=== PATIENT | male | born 1940 | race Caucasian/White ===

== ENCOUNTER 2019-05-06 11:59 | Day surgery (SDC) | payer MEDICARE ==
[~2019-05-06] VITALS: Ht 182.9 cm; Wt 86.9 kg
[~2019-05-06 11:59] MED LIST: ACET-2065 PO; TRAM50TA2 PO
[2019-05-06] MEDS ORDERED: LACTATED RINGERS 1,000 ML IV SCH (12:55)
[2019-05-06 12:58] VITALS: BP 167/67
[2019-05-06 13:07] LABS: BASOPHILS # (AUTO) 0.07 x10^3/uL (0-0.1); BASOPHILS % (AUTO) 1 % (0-1); EOSINOPHILS # (AUTO) 0.26 x10^3/uL (0-0.4); EOSINOPHILS % (AUTO) 3 % (1-7); LYMPHOCYTES # (AUTO) 1.91 x10^3/uL (1-3.4); LYMPHOCYTES % (AUTO) 21 % (22-44); MD NO; MEAN CORPUSCULAR HEMOGLOBIN 29.9 pg (27.5-34.5); MEAN CORPUSCULAR HGB CONC 33.4 g/dL (33.2-36.2); MEAN CORPUSCULAR VOLUME 89.8 fL (81-97); MEAN PLATELET VOLUME 6.6 fL (7.4-10.4); MONOCYTES # (AUTO) 0.68 x10^3/uL (0.2-0.8); MONOCYTES % (AUTO) 8 % (2-9); NEUTROPHILS # (AUTO) 6.11 x10^3/uL (1.8-6.8); NEUTROPHILS % (AUTO) 68 % (42-75); PLATELET COUNT 255 x10^3/uL (130-400); RED BLOOD COUNT 5.11 x10^6/uL (4.38-5.82); RED CELL DISTRIBUTION WIDTH 13.4 % (9.4-14.8)
[2019-05-06 13:18] LABS: ANION GAP 4 mmol/L (5-15); CALCIUM 9.2 mg/dL (8.5-10.1); CHLORIDE 106 mmol/L (98-107); CREATININE 0.89 mg/dL (0.7-1.3)
[2019-05-06] MEDS ORDERED: DEXAMETHASONE 4 MG/ML, 1ML ONE ×4 (13:32→13:38)
[2019-05-06] MEDS ORDERED: FENTANYL PF 100 MCG/2ML ONE ×2 (13:32→15:05)
[2019-05-06] MEDS ORDERED: LIDOCAINE-MPF 2% ,5ML ONE ×2 (13:32→13:36)
[2019-05-06] MEDS ORDERED: SUCCINYLCHOLINE 20 MG/ML, 10ML ONE ×2 (13:42→13:58)
[2019-05-06] MEDS ORDERED: EPHEDRINE 50 MG/ML, 1ML IVPush PRN (14:00)
[2019-05-06] MEDS ORDERED: PROMETHAZINE 25 MG/ML, 1ML IV PRN (14:00)
[2019-05-06] MEDS ORDERED: LABETALOL 5MG/ML, 20ML IV PRN (14:00)
[2019-05-06] MEDS ORDERED: ONDANSETRON 2MG/ML, 2ML IV PRN (14:00)
[2019-05-06] MEDS ORDERED: HYDROcodone/APAP 7.5-325MG/15ML UDC PO PRN (14:00)
[2019-05-06] MEDS ORDERED: MEPERIDINE/PF 25MG/ML,1ML IVPush PRN (14:00)
[2019-05-06] MEDS ORDERED: HYDROmorphone 2 MG/ML, 1ML IVPush PRN (14:00)
[2019-05-06] MEDS ORDERED: FENTANYL PF 100 MCG/2ML IV PRN (14:00)
[2019-05-06] MEDS ORDERED: hydrALAzine 20 MG/ML, 1ML IV PRN (14:00)
[2019-05-06] MEDS ORDERED: ROCURONIUM 10 MG/ML,10ML ONE (14:31)
[2019-05-06] MEDS ORDERED: CEFAZOLIN 1,000 MG ONE (14:31)
[2019-05-06] MEDS ORDERED: PROPOFOL 10 MG/ML, 20ML ONE (14:31)
[2019-05-06] MEDS ORDERED: LIDOCAINE GEL 2%, 5ML ONE (14:31)
[2019-05-06] MEDS ORDERED: ONDANSETRON 2MG/ML, 2ML ONE (14:41)
[2019-05-06] MEDS ORDERED: KETOROLAC 30 MG/1 ML ONE (14:41)
[2019-05-06] MEDS ORDERED: NEOSTIGMINE 1 MG/ML, 10ML ONE (14:51)
[2019-05-06] MEDS ORDERED: GLYCOPYRROLATE 0.2MG/1ML, 5ML ONE (14:51)
[2019-05-06] MEDS ORDERED: MITOMYCIN 40 MG in STERILE WATER 20 ML IV ONE (15:00)
[2019-05-06] MEDS ORDERED: ACETAMINOPHEN 325 MG TABLET PO PRN (15:30)
== END 2019-05-06 18:30 | disposition home or self-care (01) ==
LOC: OUT 11:59
PROVIDERS: ATTEND Urology
DX: C67.2 Malignant neoplasm of lateral wall of bladder (principal); Z79.1 Long term (current) use of non-steroidal anti-inflammatories (NSAID); Z79.891 Long term (current) use of opiate analgesic; Z79.899 Other long term (current) drug therapy; Z87.442 Personal history of urinary calculi; Z98.890 Other specified postprocedural states; Z80.52 Family history of malignant neoplasm of bladder
CPT/HCPCS: 36415; 52235; 80048; 85025; 87086; 88305; 93005; J0330; J0690; J1100; J1885; J2405; J2704; J2710; J3010; J7120